=== PATIENT | female | born 1955 | race Caucasian/White ===

== ENCOUNTER → 2017-01-16 | Day surgery (SDC) | payer BC ==
[~2017-01-16] MED LIST: Lactated Ringers 1,000 ML IV SCH; Propofol 200 MG/20 ML SDV IV ONE
[2017-01-16 12:14] VITALS: BP 177/78
--- NOTE | 2017-01-19 07:07 | OR ---
DATE OF OPERATION: 01/16/2017 PREOPERATIVE DIAGNOSIS: SCREENING COLONOSCOPY. POSTOPERATIVE DIAGNOSIS: SCREENING COLONOSCOPY. SURGEON: Tristen Joshi MD PROCEDURE: FULL-LENGTH COLONOSCOPY. 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 COMPLICATIONS: None. SPECIMEN: None. FINDINGS: Normal full-length colonoscopy. RECOMMENDATIONS: Routine colonoscopy every 10 years. INDICATIONS: The patient was in for a physical. She has never had a colonoscopy. She was sent for screening procedure. DESCRIPTION OF PROCEDURE: The patient was prepped and draped, placed in left lateral decubitus position. A lubricated Olympus colonoscope was inserted and with relative ease advanced to the cecum. The patient is quite tortuous, but the scope passed safely and easily. We were able to visualize the ileocecal valve and appendiceal orifice. Upon withdrawal, throughout the entire length of the colon I found no signs of any polyps, mass, ulceration, or bleeding sites. There were no vascular abnormalities or signs of colitis. No diverticular disease was noted. The rectal vault was unremarkable. Retroflexion of the scope in the rectum showed no perianal lesions. Air was then suctioned and the scope was removed without complication. TAYE/DOMONIQUE /[id number]
== END ==
LOC: CC.SDS 09:33
PROVIDERS: ATTEND Family Medicine
DX: Z12.11 Encounter for screening for malignant neoplasm of colon (principal); J45.909 Unspecified asthma, uncomplicated; Z79.899 Other long term (current) drug therapy; Z90.49 Acquired absence of other specified parts of digestive tract; Z90.710 Acquired absence of both cervix and uterus; Z72.0 Tobacco use
CPT/HCPCS: 45378; J7120; J2704

== ENCOUNTER 2021-02-24 09:38 | Emergency (ER) | payer MEDICARE, BC ==
[2021-02-24] MEDS ORDERED: Ketorolac 30 MG/ML SDV IVPUSH ONE (10:13)
--- NOTE | 2021-02-24 10:23 | EDM.PDOC ---
ED HPI GENERAL MEDICAL PROBLEM - General Chief Complaint: General Stated Complaint: "PAIN INSIDE" Time Seen by Provider: 02/24/21 10:10 Source of Information: Reports: Patient History Limitations: Reports: No Limitations - History of Present Illness INITIAL COMMENTS - FREE TEXT/NARRATIVE: Marjorie is a 65 year old female who presents to ER with complaints of left flank pain. States started rather suddenly this am, has radiated to her left side. No fevers. Does feel nauseated at times when the waves of pain hit. Had dry heaves at home. No cough, sinus congestion, sore throat. No diarrhea. No abdominal pain. Has had UTIs, had one in January, before but never with this type of discomfort. Does admit that when she has had infections, only real symptom she usually has is back pain and frequency. Hasn't noted much for frequency but admits hasn't had anything to drink today. No history of kidney stones. Onset: Today, Sudden Duration: Hour(s): Location: Reports: Back Quality: Reports: Ache Severity: Moderate Improves with: Reports: None Associated Symptoms: Reports: Nausea/Vomiting. Denies: Confusion, Chest Pain, Cough, Fever/Chills, Loss of Appetite, Shortness of Breath Treatments [employer]LE[employer] CLERK: Reports: Other (see below) Other Treatments [employer]LE[employer] CLERK: none Left Lower Back Pain Score (Numeric/FACES): 7 - Related Data Allergies Allergy/AdvReac Type Severity Reaction Status Date / Time No Known Allergies Allergy Verified 02/24/21 09:38 Home Meds: Home Meds Albuterol Sulfate 2.5 mg IH QID PRN 01/15/17 [History] Albuterol [Ventolin HFA] 2 puff INH Q4H PRN 01/15/17 [History] Cholecalciferol (Vitamin D3) [Vitamin D3] 2,000 unit PO DAILY 01/15/17 [History] Magnesium Oxide [Magnesium] 500 mg PO DAILY 01/15/17 [History] Multivitamin with Minerals [Multiple Vitamin] 1 tab PO DAILY 01/15/17 [History] Cranberry 500 mg PO DAILY 02/24/21 [History] Ketorolac [Toradol] 10 mg PO Q6H PRN #20 tab 02/24/21 [Rx] Levofloxacin [Levaquin] 500 mg PO DAILY #7 tablet 02/24/21 [Rx] Tamsulosin HCl [Flomax] 0.4 mg PO DAILY #6 cap.er.24h 02/24/21 [Rx] Past Medical History Respiratory History: Reports: Asthma - Past Surgical History Female Surgical History: Reports: Hysterectomy Social & Family History - Tobacco Use Tobacco Use Status *Q: Unknown Ever Used Tobacco ED ROS GENERAL - Review of Systems Review Of Systems: See Below Constitutional: Reports: Malaise. Denies: Fever, Chills, Weakness, Fatigue, Decreased Appetite HEENT: Reports: No Symptoms Respiratory: Denies: Shortness of Breath, Cough Cardiovascular: Denies: Chest Pain, Edema, Lightheadedness Endocrine: Denies: Fatigue GI/Abdominal: Reports: Nausea. Denies: Abdominal Pain, Constipation, Diarrhea, Vomiting : Reports: Flank Pain. Denies: Dysuria, Frequency, Urgency Musculoskeletal: Reports: No Symptoms Skin: Reports: No Symptoms Neurological: Reports: No Symptoms Psychiatric: Reports: No Symptoms ED EXAM, GENERAL - Physical Exam Exam: See Below Exam Limited By: No Limitations General Appearance: Alert, WD/WN, No Apparent Distress Ears: Normal External Exam, Normal TMs Nose: Normal Inspection, Normal Mucosa, No Blood Throat/Mouth: Normal Inspection, Normal Oropharynx Head: Normocephalic Neck: Normal Inspection, Supple, Non-Tender Respiratory/Chest: No Respiratory Distress, Lungs Clear, Normal Breath Sounds Cardiovascular: Regular Rate, Rhythm GI/Abdominal: Normal Bowel Sounds, Soft, Non-Tender Back Exam: Normal Inspection, Full Range of Motion, CVA Tenderness (L) Extremities: Normal Inspection, No Pedal Edema Neurological: Alert, Oriented Skin Exam: Warm, Dry Course - Vital Signs Last Recorded V/S: Last Vital Signs Temp 97.4 F 02/24/21 09:40 Pulse 62 02/24/21 10:30 Resp 16 02/24/21 10:30 BP 152/81 H 02/24/21 10:30 Pulse Ox 100 02/24/21 10:30 - Orders/Labs/Meds Orders: Active Orders 24 hr Category Date Time Status Abdomen Pelvis wo Cont [CT] Stat Exams 02/24/21 10:17 Taken CULTURE URINE [RM] Stat Lab 02/24/21 10:03 Received Labs: Laboratory Tests 02/24/21 02/24/21 02/24/21 Range/Units 09:49 09:49 09:51 WBC 6.4 (4.0-11.0) 10^3/uL RBC 4.25 (4.00-5.50) x10^6/uL Hgb 13.0 (12.0-16.0) g/dL Hct 39.1 (37.0-47.0) % MCV 92.0 (83.0-97.0) fL MCH 30.6 (27.0-32.0) pg MCHC 33.2 (32.0-36.0) g/dL RDW Coeff of Luiz 12.6 (11.0-15.0) % Plt Count 204 (150-400) 10^3/uL Immature Gran % (Auto) 0.9 (0.0-4.9) % Neut % (Auto) 70.8 (41-71) % Lymph % (Auto) 19.1 L (24-44) % [place] % (Auto) 6.1 (0-10) % Eos % (Auto) 2.8 (0-6) % Baso % (Auto) 0.3 (0-1) % Neut # (Auto) 4.55 (1.80-8.00) x10^3/uL Lymph # (Auto) 1.23 (0.60-5.00) 10^3/uL [place] # (Auto) 0.39 (0.00-1.50) 10^3/uL Eos # (Auto) 0.18 (0.00-1.50) 10^3/uL Baso # (Auto) 0.02 (0.00-0.50) 10^3/uL Immature Gran # (Auto) 0.06 (0.00-0.49) 10^3/uL Sodium 141 (136-145) mEq/L Potassium 3.9 (3.5-5.0) mEq/L Chloride 104 (98-106) mEq/L Carbon Dioxide 29 (21-32) mmol/L BUN 14 (7-18) mg/dL Creatinine 1.0 (0.6-1.0) mg/dL Est Cr Clr Drug Dosing 47.14 mL/min Estimated GFR (MDRD) 55 L (>=60) mL/min Glucose 106 H (75-99) mg/dL Calcium 8.7 (8.4-10.1) mg/dL Total Bilirubin 0.6 (0.0-1.0) mg/dL AST 21 (15-37) U/L ALT 23 (12-78) U/L Alkaline Phosphatase 81 (46-116) U/L C-Reactive Protein 0.9 H (0.2-0.8) mg/dL Total Protein 7.0 (6.4-8.2) g/dL Albumin 3.6 (3.4-5.0) g/dL Urine Color Yellow (YELLOW) Urine Appearance Clear (CLEAR) Urine pH 7.0 (4.5-8.0) Ur Specific [place] 1.020 (1.003-1.020) Urine Protein Trace H (NEGATIVE) mg/dL Urine Glucose (UA) Negative (NEGATIVE) mg/dL Urine Ketones Negative (NEGATIVE) mg/dL Urine Occult Blood Moderate H (NEGATIVE) Urine Nitrite Negative (NEGATIVE) Urine Bilirubin Negative (NEGATIVE) Urine Urobilinogen 0.2 (0.2-1.0) EU/dL Ur Leukocyte Esterase Large H (NEGATIVE) Urine RBC 40-50 H (0-5) /HPF Urine WBC 40-50 H (0-5) /HPF Urine Bacteria Few H (NOT SEEN) /HPF Urinalysis Comment Meds: Medications Discontinued Medications Generic Name Dose Route Start Last Admin Trade Name Freq PRN Reason Stop Dose Admin Hydrocodone Bitart/Acetaminophen 1 packet 02/24/21 11:46 Take Home: Acetaminophen/Hydrocodone 325-5 Mg, 2 Tab Pack PO 02/24/21 11:47 ONETIME ONE Ceftriaxone Sodium 1 gm 02/24/21 11:41 02/24/21 11:54 Ceftriaxone 1 Gm Vial IVPUSH 02/24/21 11:42 1 gm ONETIME ONE Administration Sodium Chloride 1,000 mls @ 999 mls/hr 02/24/21 10:53 02/24/21 10:56 Normal Saline IV 02/24/21 11:53 999 mls/hr .BOLUS ONE Administration Ketorolac Tromethamine 30 mg 02/24/21 10:13 02/24/21 10:16 Ketorolac 30 Mg/Ml Sdv IVPUSH 02/24/21 10:14 30 mg ONETIME ONE Administration Ketorolac Tromethamine 1 packet 02/24/21 11:46 Take Home: Ketorolac 10 Mg Tab, 4 Tab Pack PO 02/24/21 11:47 ONETIME ONE Tamsulosin HCl 0.4 mg 02/24/21 11:42 02/24/21 11:52 Tamsulosin 0.4 Mg Cap.Er PO 02/24/21 11:43 0.4 mg ONETIME ONE Administration - Re-Assessments/Exams Free Text/Narrative Re-Assessment/Exam: 02/24/21 10:53 Toradol has helped the pain. CT shows possible stone, will start IV fluids and strain when voids. 02/24/21 11:40 CT scan shows 3 mm stone at the UPJ with hydronephrosis. Advised patient. IV fluids infusing. Still comfortable after the Toradol shot. Departure - Departure Time of Disposition: 11:49 Disposition: Home, Self-Care 01 Condition: Good Clinical Impression: UTI (urinary tract infection), Ureteral calculus, left - Discharge Information *PRESCRIPTION DRUG MONITORING PROGRAM REVIEWED*: No *COPY OF PRESCRIPTION DRUG MONITORING REPORT IN PATIENT OLIVIA: No Prescriptions: Tamsulosin HCl [Flomax] 0.4 mg PO DAILY #6 cap.er.24h Levofloxacin [Levaquin] 500 mg PO DAILY #7 tablet Ketorolac [Toradol] 10 mg PO Q6H PRN #20 tab PRN Reason: Pain Instructions: Renal Colic, [id number], Urinary Tract Infection, Adult, [id number] Referrals: PCP,None [Primary Care Provider] - Forms: ED Department Discharge Additional Instructions: 1. Push fluids 2. Strain urine 3. Toradol 10 mg every 6 hours for lesser pain 4. [place] 5/325 every 6 hours for more severe pain not relieved by Toradol 5. Flomax 0.4 mg daily for 6 more days 6. Start Levaquin 500 mg daily for 7 days tomorrow 7. Follow up with primary care provider in next week if pain persists Sepsis Event Note (ED) - Evaluation Sepsis Screening Result: No Definite Risk - Focused Exam Vital Signs: Vital Signs Temp Pulse Resp BP BP Pulse Ox 02/24/21 10:30 62 16 152/81 H 100 02/24/21 09:40 97.4 F 72 16 150/88 H 100 - My Orders Last 24 Hours: My Active Orders 02/24/21 10:03 CULTURE URINE [RM] Stat 02/24/21 10:17 Abdomen Pelvis wo Cont [CT] Stat - Assessment/Plan Last 24 Hours: My Active Orders 02/24/21 10:03 CULTURE URINE [RM] Stat 02/24/21 10:17 Abdomen Pelvis wo Cont [CT] Stat
[2021-02-24 10:34] VITALS: BP 152/81; PULSE 62
[2021-02-24] MEDS ORDERED: Sodium Chloride 0.9% 1,000 ML IV ONE (10:53)
[2021-02-24] MEDS ORDERED: Ketorolac 10 MG Tab ONE (11:27)
[2021-02-24] MEDS ORDERED: Acetaminophen/HYDROcodone 325-5 MG Tab ONE (11:28)
[2021-02-24] MEDS ORDERED: cefTRIAXone 1 GM Vial IVPUSH ONE (11:41)
[2021-02-24] MEDS ORDERED: Tamsulosin 0.4 MG Cap.ER PO ONE (11:42)
[2021-02-24] MEDS ORDERED: Take Home: Acetaminophen/HYDROcodone 325-5 MG, 2 Tab Pack PO ONE (11:46)
[2021-02-24] MEDS ORDERED: Take Home: Ketorolac 10 MG Tab, 4 Tab Pack PO ONE (11:46)
== END 2021-02-24 12:10 | disposition home or self-care (01) ==
LOC: CC.ED 09:38
DX: N13.2 Hydronephrosis with renal and ureteral calculous obstruction (principal); N39.0 Urinary tract infection, site not specified; Z79.899 Other long term (current) drug therapy
CPT/HCPCS: 36415; 74176; 80053; 81001; 85025; 86140; 87086; 96374; 96375; 99284; A9270; J0696; J1885; J7030

== ENCOUNTER 2024-06-12 07:38 | Emergency (ER) | payer MEDICARE, BC ==
[2024-06-12 07:43] VITALS: BP 162/64; PULSE 84
[2024-06-12 08:05] LABS: BASOPHILS ABSOLUTE AUTO 0.02 10^3/uL (0.00-0.50); BASOPHILS PERCENT AUTO 0.3 % (0-1); HEMATOCRIT 39.2 % (37.0-47.0); HEMOGLOBIN 13.1 g/dL (12.0-16.0); IMMATURE GRAN ABSOLUTE AUTO 0.02 10^3/uL (0.00-0.49); IMMATURE GRAN PERCENT AUTO 0.3 % (0.0-4.9); LYMPHOCYTES ABSOLUTE AUTO 0.65 10^3/uL (0.60-5.00); LYMPHOCYTES PERCENT AUTO 8.4 % (24-44); MEAN CORPUSCULAR HEMOGLOBIN 30.9 pg (27.0-32.0); MEAN CORPUSCULAR HGB CONC 33.4 g/dL (32.0-36.0); MEAN CORPUSCULAR VOLUME 92.5 fL (83.0-97.0); MONOCYTES ABSOLUTE AUTO 0.76 10^3/uL (0.00-1.50); MONOCYTES PERCENT AUTO 9.8 % (0-10); NEUTROPHILS ABSOLUTE AUTO 6.31 x10^3/uL (1.80-8.00); NEUTROPHILS PERCENT AUTO 81.2 % (41-71); PLATELET COUNT,PLT 192 10^3/uL (150-400); RED BLOOD CELL COUNT 4.24 x10^6/uL (4.00-5.50); WHITE BLOOD CELL COUNT,WBC 7.8 10^3/uL (4.0-11.0)
[2024-06-12 08:19] LABS: ALBUMIN 3.7 g/dL (3.4-5.0); BILIRUBIN TOTAL 1.2 mg/dL (0.0-1.0); C-REACTIVE PROTEIN 10.53 mg/dL (<=0.50); CALCIUM 9.3 mg/dL (8.4-10.1); EST CRCL DRUG DOSING (CG) 45.2 mL/min; PROTEIN TOTAL,TP 7.6 g/dL (6.4-8.2)
[2024-06-12] MEDS: Nirmatrelvir/Ritonavir 300 MG/100 MG Dosepak PO SCH (08:35)
[2024-06-12] MEDS: Take Home: Albuterol 0.083% 2.5 MG/3 ML Neb Soln, 5 Neb Pack NEB ONE (08:35)
== END 2024-06-12 09:00 | disposition home or self-care (01) ==
LOC: CC.ED 07:38
DX: U07.1 COVID-19 (principal); J45.909 Unspecified asthma, uncomplicated; Z90.49 Acquired absence of other specified parts of digestive tract; Z90.710 Acquired absence of both cervix and uterus; Z79.899 Other long term (current) drug therapy
CPT/HCPCS: 36415; 71046; 80053; 85025; 86140; 87428-QW; 99284; 99285; A9270-GY

== ENCOUNTER 2024-06-14 11:28 | Emergency (ER) | payer MEDICARE, BC ==
[2024-06-14 12:53] LABS: BASOPHILS ABSOLUTE AUTO 0.01 10^3/uL (0.00-0.50); BASOPHILS PERCENT AUTO 0.1 % (0-1); EOSINOPHILS ABSOLUTE AUTO 0.02 10^3/uL (0.00-1.50); EOSINOPHILS PERCENT AUTO 0.3 % (0-6); HEMATOCRIT 39.1 % (37.0-47.0); HEMOGLOBIN 13.2 g/dL (12.0-16.0); IMMATURE GRAN ABSOLUTE AUTO 0.02 10^3/uL (0.00-0.49); IMMATURE GRAN PERCENT AUTO 0.3 % (0.0-4.9); LYMPHOCYTES ABSOLUTE AUTO 1.44 10^3/uL (0.60-5.00); LYMPHOCYTES PERCENT AUTO 18.2 % (24-44); MEAN CORPUSCULAR HEMOGLOBIN 31.3 pg (27.0-32.0); MEAN CORPUSCULAR HGB CONC 33.8 g/dL (32.0-36.0); MEAN CORPUSCULAR VOLUME 92.7 fL (83.0-97.0); MONOCYTES ABSOLUTE AUTO 0.66 10^3/uL (0.00-1.50); MONOCYTES PERCENT AUTO 8.3 % (0-10); NEUTROPHILS ABSOLUTE AUTO 5.78 x10^3/uL (1.80-8.00); NEUTROPHILS PERCENT AUTO 72.8 % (41-71); PLATELET COUNT,PLT 232 10^3/uL (150-400); RED BLOOD CELL COUNT 4.22 x10^6/uL (4.00-5.50); WHITE BLOOD CELL COUNT,WBC 7.9 10^3/uL (4.0-11.0)
[2024-06-14 13:10] LABS: ALANINE AMINOTRANSFERASE,ALT 29 U/L (12-78); ALBUMIN 3.5 g/dL (3.4-5.0); ALKALINE PHOSPHATASE 80 U/L (46-116); ASPARTATE AMNIOTRANSFERASE,AST 25 U/L (15-37); BILIRUBIN TOTAL 0.9 mg/dL (0.0-1.0); BLOOD UREA NITROGEN,BUN 16 mg/dL (7-18); C-REACTIVE PROTEIN 16.71 mg/dL (<=0.50); CALCIUM 9.6 mg/dL (8.4-10.1); CARBON DIOXIDE,CO2 30 mmol/L (21-32); CHLORIDE,CL 100 mEq/L (98-106); CREATININE 1.2 mg/dL (0.6-1.0); ESTIMATED GFR 49 mL/min (>=60); GLUCOSE RANDOM 102 mg/dL (75-99); POTASSIUM,K 3.8 mEq/L (3.5-5.0); PROTEIN TOTAL,TP 7.6 g/dL (6.4-8.2); SODIUM,NA 139 mEq/L (136-145)
[2024-06-14 13:13] VITALS: BP 158/77; PULSE 74
[2024-06-14] MEDS: Sodium Chloride 0.9% 1,000 ML IV ONE (13:13)
== END 2024-06-14 14:45 | disposition home or self-care (01) ==
LOC: CC.ED 11:28
DX: U07.1 COVID-19 (principal); J40 Bronchitis, not specified as acute or chronic; E86.0 Dehydration; J45.909 Unspecified asthma, uncomplicated; Z90.49 Acquired absence of other specified parts of digestive tract; Z79.899 Other long term (current) drug therapy
CPT/HCPCS: 36415; 71046; 80053; 83735; 85025; 86140; 96360; 99285-25; J7030